=== PATIENT | female | born 1965 | race Caucasian/White ===

== ENCOUNTER 2016-10-09 20:02 | Emergency (ER) | payer MEDICARE, OTHER ==
[2016-10-09] MEDS ORDERED: ZIPRASIDONE HCL 20 MG CAPSULE PO ONE (22:56)
[2016-10-09] MEDS ORDERED: ZIPRASIDONE HCL 20 MG CAPSULE ONE (22:56)
[2016-10-09] MEDS ORDERED: LORazepam 1 MG TABLET PO ONE (22:56)
[2016-10-09] MEDS ORDERED: LORazepam 1 MG TABLET ONE (22:57)
--- NOTE | 2016-10-09 22:57 | ERNOTE ---
<Jordan Lomax - Last Filed: 10/10/16 08:03> Psychological HPI - General Chief Complaint: Psychiatric Problem Source: Reports: patient Exam Limitations: Reports: clinical condition - Immun/Allergies/Home Medications Allergies/Adverse Reactions: Allergies erythromycin base [Erythromycin Base] Adverse Reaction (Intermediate, Verified 10/10/16 17:35) Vomiting, DIARRHEA, DORADO Home Medications: HOME MEDICATIONS Simvastatin [Zocor] 40 mg PO HS 02/21/13 [Last Taken 10/18/13] Citalopram Hydrobromide [Citalopram HBr] 40 mg PO DAILY 06/30/14 [Last Taken Unknown] Multivitamin [Multi-Vitamin Daily] 1 each PO DAILY 10/25/14 [Last Taken Unknown] Omeprazole [Prilosec] 40 mg PO DAILY #30 cap 08/22/15 [Last Taken Unknown] [place] Carbonate ER 450 mg PO BID 04/05/16 [Last Taken Unknown] ALPRAZolam [Xanax] 0.25 mg PO BID #60 tablet 04/11/16 [Last Taken Unknown] ALPRAZolam [Xanax] 2 mg PO HS #30 tablet 04/11/16 [Last Taken Unknown] Acetaminophen [Tylenol] 650 mg PO QID PRN #0 tablet 04/11/16 [Last Taken Unknown ] Albuterol Sulfate [Proair Hfa] 2 puff IH Q4H PRN #1 inhaler 04/11/16 [Last Taken Unknown] Dextroamphetamine/Amphetamine [Adderall 20 Mg Tablet] 30 mg PO BID@0900,1200 [Last Taken Unknown] Diclofenac Potassium [Zipsor] 2 cap PO TID #180 capsule 04/11/16 [Last Taken Unknown] Gabapentin [Neurontin] 2 tab PO TID #180 tablet 04/11/16 [Last Taken Unknown] HYDROcodone/ACETAMINOPHEN [[place] 5-325 Tablet] 1 tab PO Q6H PRN #120 tablet [Last Taken Unknown] Multivitamins [Multivitamin Lee] 1 cap PO DAILY capsule 04/11/16 [Last Taken Unknown] Nicotine [Nicoderm] 21 mg TD Q24H #30 patch.td24 04/11/16 [Last Taken Unknown] Topiramate [Topamax] 2 tab PO BID #120 tablet 04/11/16 [Last Taken Unknown] risperiDONE [Risperdal] 1 mg PO HS #30 tab 04/11/16 [Last Taken Unknown] - History of Present Illness Narrative: pt brought in by EMS due to suicidal ideations. Pt states that 2 months ago she began tapering off her lithium and stopped taking it one month ago. Ten days ago she received her regular [place]vega sustena injection after that injection she believes she began to worsen. She began to have return of auditory hallucinations. At first the voices were distant and whispers but at times the voices are worse. Especially when her paranoia increases then the voices also increase. She states she has not showered in a week due to the voices but cannot explain why. she has been having relationship issues with her boyfriend. He continues to push the relationship but she feels like she is better alone. She states she spent 9 years alone and she did much better overall. She does not want to take her medications because of the SE especially lithium but also the Invega. She is afraid of what she may do to herself and does not feel safe at home but does not have a specific plan of suicide Time Seen by Provider: 10/09/16 20:25 Arrived by: Reports: ambulance, called by patient - but patient states she does not remember calling them Onset/duration: Reports: gradual onset Intent: Reports: wants to escape - from the voices Situational Problems: Reports: significant other Associated Symptoms: Reports: frustrated, paranoid, hallucinating, suicidal thoughts Review of Systems - Review of Systems Constitutional: Absent: recent illness, fever, chills EYE: Present: no symptoms reported ENT: Present: no symptoms reported Respiratory: Present: shortness of breath - due to smoking but not any different than usual Cardiology: Present: no symptoms reported Gastrointestinal/Abdominal: Present: eating less - due to SE of her medications Genitourinary: Present: no symptoms reported Musculoskeletal: Present: no symptoms reported Skin: Present: no symptoms reported Neurological: Present: dizziness/light-headedness, weakness Endocrine: Present: no symptoms reported Hematologic/Lymphatic: Present: no symptoms reported Psych: Present: See HPI - Patient's Past Medical History Patient History - Medical: Anxiety, Depression, GERD, Headache, UTI'S, Other Patient History - Cardiac/Respiratory: COPD, CVA/Stroke, Hypertension, Hyperlipidemia Patient History - Cancer: No Hx of Cancer Patient History - Surgical Procedures: Cholecystectomy, D & C, Tubal Ligation, Other Patient History - Other: None - Family History Mother Family History - Medical: History Unknown Father Family History - Medical: History Unknown Family History - Cardiac/Respiratory: Myocardial Infarction Brother Family History - Medical: Diabetes Type 2, Renal Failure, Other Sister Family History - Medical: Other - Social History Living Situations: home Psych History: Hx of Anxiety, Hx of Depression, Hx of Schizophrenia Alcohol Use: none Drug Use: none - Immunizations Immunizations Up to Date: Yes Hx Pneumococcal Vaccination: No History of Influenza Vaccine: No Physical Exam - Physical Exam General Appearance: Present: wd/wn, alert, anxious Eye Exam: Normal inspection: bilateral, PERRL: bilateral, EOMI: bilateral Ears, Nose, Throat: Present: normal ENT inspection Neck: Present: normal inspection, nontender Respiratory: Present: no respiratory distress, normal breath sounds, no accessory muscle use, chest nontender, lungs clear Cardiovascular/Chest: Present: regular rate, rhythm, no murmur Gastrointestinal/Abdominal: Present: normal bowel sounds, nontender, nondistended, soft Back Exam: Present: normal inspection, normal range of motion Extremity Exam: Present: normal inspection, normal range of motion Neurological Exam: Present: alert, oriented, other - thoughs are tangential but patient at times realizes that she isn't "thinking straight" Skin Exam: Present: normal color, warm/dry Lymphatic Exam: Present: no adenopathy ED Progress - Results and Orders Patient's Lab Results:: I have reviewed the patient's lab results. Results and Orders: Laboratory Tests 10/09/16 10/09/16 10/09/16 Unknown Unknown Unknown WBC 7.5 Hgb 14.1 Hct 41.0 Plt Count 186 Sodium 140 Potassium 4.0 Chloride 105 Carbon Dioxide 19.0 L Anion Gap 20.0 H BUN 10 D Creatinine 0.82 Est GFR (Non-Af Amer) 78 Random Glucose 93 Calcium 9.2 Total Bilirubin 0.1 AST 16 ALT 23 Alkaline Phosphatase 67 Total Protein 8.0 Albumin 3.8 Urine Color Urine Appearance Urine pH Ur Specific [place] Urine Protein Urine Glucose (UA) Urine Ketones Urine Blood Urine Nitrate Urine Bilirubin Urine Urobilinogen Ur Leukocyte Esterase Urine RBC Urine WBC Ur Epithelial Cells Urine Bacteria Urine Culture Comments Salicylates 6.5 Urine Opiates Screen Positive H Acetaminophen Less than 0.2 L Barbiturate Screen Negative Ur Phencyclidine Scrn Negative Urine Amphetamine Positive H U Benzodiazepines Scrn Negative Urine Cocaine Screen Negative Urine Marijuana (THC) Positive H Ethyl Alcohol 3.0 10/09/16 Unknown WBC Hgb Hct Plt Count Sodium Potassium Chloride Carbon Dioxide Anion Gap BUN Creatinine Est GFR (Non-Af Amer) Random Glucose Calcium Total Bilirubin AST ALT Alkaline Phosphatase Total Protein Albumin Urine Color Yellow Urine Appearance Clear Urine pH 6.0 Ur Specific [place] 1.025 Urine Protein Negative Urine Glucose (UA) Negative Urine Ketones Negative Urine Blood Negative Urine Nitrate Negative Urine Bilirubin Negative Urine Urobilinogen Normal Ur Leukocyte Esterase Negative Urine RBC 5-10 H Urine WBC None seen Ur Epithelial Cells 0-5 Urine Bacteria 3+ H Urine Culture Comments No culture indicated Salicylates Urine Opiates Screen Acetaminophen Barbiturate Screen Ur Phencyclidine Scrn Urine Amphetamine U Benzodiazepines Scrn Urine Cocaine Screen Urine Marijuana (THC) Ethyl Alcohol - Vital Signs Patient's Vital Signs:: I have reviewed the patient's vital signs. - Progress/Reassessment Chief Complaint: Psychiatric Problem Progress:: Improved - has been sleeping off and on Progress Note-Subjective: I had discussed the plan with the patient initially including blood draw and urinalysis, she agreed. When the maintenance fitter went into the room the patient began crying and refusing to allow a blood draw. She thought that we were going to give her an injection of medication and she didn't want any more medication. I explained to the patient that we were not giving her anything only taking blood, after some time the patient allowed blood to be taken. Pt began to get upset with the noise that was going on in the ER, as it was busy. She began yelling and coming out into the hallway. We discussed it with her and were able to get her to go back into her exam room. 10/09/16 22:54 22:45 pt tried to leave the facility. I convinced her to go back to her room. Pt agreed to take PO meds to help with her anxiety and paranoia. 23:05 Pt called me into the room, asking to talk with me. She admitted that she "tried methamphetamine" 3 weeks ago. Pt states she only used it that one time and that it made her very sick. 10/09/16 23:20 Pt again tried to leave and LE was called to keep the patient from eloping. Geodon and ativan were given PO, patient took them without incident 10/10/16 00:35 Pt asked for her night time medications, orders entered but have not gone through 10/10/16 00:42 Medication orders not showing on MAR. 10/10/16 04:59 Medication ordered separately: risperdal and gabapentin and was given. - Transfer of Care Physician Sign Out: Jordan Lomax Receiving Physician: Jacek More Expected Disposition: Transfer Departure Clinical Impression: Suicidal thoughts, Hallucinations Schizoaffective disorder Qualifiers: Schizoaffective disorder type: depressive Qualified Code(s): F25.1 - Schizoaffective disorder, depressive type - Departure Condition: Good <Jacek More - Last Filed: 10/10/16 20:08> ED Progress - Date and Time Seen: Date and Time: 10/10/16 14:17 Pt continues to be disruptive and violent. She is continuing to hallucinate and yells out at the staff. We are awaiting placement at a facility. - Transfer of Care Physician Sign Out: Jacek More Receiving Physician: Jordan Lomax
[2016-10-10 00:02] LABS: Hemoglobin 14.1 gm/dL (12.5-16.0); Mean Cell Volume 94.5 fl (78-100); Mean Corpuscular Hemoglobin 32.5 pg (27-31); Mean Corpuscular Hgb Conc 34.4 g/dl (32-36); Mean Platelet Volume 10.7 fl (6.0-9.5); Neutrophil # 4.8 K/mm3 (1.3-6.0); Neutrophil % 63.8 % (42-75.0); Platelet Count 186 K/mm3 (150-450); Red Blood Count 4.34 M/mm3 (4.2-5.4); Red Cell Distribution Width 12.2 % (11.5-14.0); White Blood Count 7.5 K/mm3 (4.0-10.5)
--- OUTSIDE RECORDS SUMMARY | 2016-10-10 00:03 | XMS REPORT | Continuity of Care Document ---
:1965 Author Organization [facility] ([facility]) Address [address] [place] [address] Phone [phone] Care Team Providers Name Role Phone Linwood Kent Primary Care Provider [phone] Source Comments This disclosure is being made pursuant to the Care Everywhere program, applicable federal and state laws, and may not contain all informaitonavailable regarding this patient.[facility] ([facility]) Active Allergies and Adverse Reactions Allergen Noted Date Severity Reactions Comments Erythromycin Diarrhea,Nausea & Vomiting,Stomach Pain Current Medications Not on file Active Problems Problem Noted Date Depressive disorder, not elsewhere classified 08/06/2008 Shortness of breath 05/22/2007 Tobacco use disorder 03/07/2007 Suicidal ideation 03/05/2007 Migraine without aura, with intractable migraine, so stated, without 2005 mention of status migrainosus Heterophoria, unspecified 05/15/2006 Headache(784.0) 05/15/2006 Breast screening, unspecified 03/19/2006 Unspecified hypothyroidism 07/02/2005 Major depressive disorder, recurrent episode, moderate 03/02/2005 Borderline personality disorder 03/02/2005 Unspecified nonpsychotic mental disorder 02/28/2005 Other and unspecified alcohol dependence, unspecified drinking behavior 2004 Dysuria 02/28/2005 Dyspepsia and other specified disorders of function of stomach 02/02/2005 Immunizations Name Dates Previously Given Next Due Hepatitis B, unspecified 05/15/2006,10/18/2000 Influenza, unspecified 05/21/2006 Tdap 03/19/2006 Social History Tobacco Use Types Packs/Day Years Used Date Never Assessed Last Filed Vital Signs Vital Sign Reading Time Taken Blood Pressure 118/65 08/10/2008 8:00 AM CAR RECORD CLERK Pulse 67 08/10/2008 8:00 AM CAR RECORD CLERK Temperature 36.6 C (97.88 F) 08/10/2008 8:00 AM CAR RECORD CLERK Respiratory Rate 18 08/10/2008 8:00 AM CAR RECORD CLERK Height 0.145 m (5.7") 08/04/2008 3:20 PM CAR RECORD CLERK Weight 103.797 kg (228 lb 13.3 oz) 08/10/2008 8:00 AM CAR RECORD CLERK Body Mass Index 4936.84 08/10/2008 8:00 AM CAR RECORD CLERK Oxygen Saturation - - Plan of Care Health Maintenance Due Date Last Done Comments MMR Vaccine 1984 Pneumococcal Vaccine (1 of 1 1985 - PPSV23) Hepatitis B Vaccine (3 of 3 07/10/2006 05/15/2006, - Primary Series) 10/18/2000 Cervical Cancer Screening 02/23/2007 02/24/2004 Mammogram 04/22/2007 04/22/2006 Lipid Disorder Screening 07/23/2011 07/23/2006, Additional history exists 06/25/2006, 05/21/2006 Influenza Vaccine: Seasonal 02/13/2016 05/21/2006 (#1) Td Vaccine 03/19/2016 03/19/2006 Colonoscopy 04/13/2016 05/16/2005 Tdap Vaccine Completed 03/19/2006 Results from Last 3 Months Not on file
[2016-10-10 00:09] LABS: Urine Bilirubin Negative (NEGATIVE); Urine Blood Negative /ul (NEGATIVE); Urine Ketone Negative (NEGATIVE); Urine Nitrite Negative (NEGATIVE); Urine Protein Negative (NEGATIVE); Urine Specific Gravity 1.025 SP.GR. (1.005-1.010); Urine Urobilinogen Normal (NORMAL)
[2016-10-10 00:10] LABS: Urine Appearance Clear; Urine Bacteria 3+; Urine Color Yellow; Urine WBC None Seen /hpf (0-5)
[2016-10-10 00:19] LABS: Cocaine Ur Negative (NEGATIVE); Urine Barbiturate Negative (NEGATIVE); Urine Benzodiazepines Negative (NEGATIVE); Urine PCP Negative (NEGATIVE)
[2016-10-10 00:21] LABS: Urine Opiates Positive (NEGATIVE); Urine THC Positive (NEGATIVE)
[2016-10-10 00:32] LABS: ALT 23 U/L (19-67); AST 16 U/L (0-48); Albumin * 3.8 gm/dl (3.4-5.0); Alkaline Phosphatase * 67 U/L (50-170); BUN/Creatinine Ratio 12.2 (9.0-21.6); Bilirubin, Total 0.1 mg/dL (0.0-1.1); Blood Urea Nitrogen 10 mg/dL (3-23); Calcium * 9.2 mg/dL (7.9-10.9); Chloride 105 mmol/L (97-106); Glucose * 93 mg/dL (70-110); Salicylate 6.5 mg/dL (2.8-20.0); Sodium 140 mmol/L (132-142)
[2016-10-10] MEDS ORDERED: GABAPENTIN 100 MG CAPSULE PO ONE (03:39)
[2016-10-10] MEDS ORDERED: risperiDONE 1 MG TABLET PO ONE (04:00)
[2016-10-10] MEDS: GABAPENTIN 600 MG TABLET PO SCH ×2 (14:20→21:52)
[2016-10-10] MEDS: ALPRAZolam 0.25 MG TABLET PO SCH ×2 (14:22→21:53)
[2016-10-10] MEDS ORDERED: ALPRAZolam 0.25 MG TABLET ONE (14:22)
[2016-10-10] MEDS ORDERED: CITALOPRAM HYDROBROMIDE 20 MG TABLET PO SCH (15:00)
[2016-10-10] MEDS ORDERED: LITHIUM CARBONATE 150 MG CAPSULE PO SCH (15:00)
[2016-10-10] MEDS ORDERED: PANTOPRAZOLE SODIUM 40 MG TABLET.EC PO SCH (15:00)
[2016-10-10] MEDS ORDERED: MULTIVITAMINS 1 CAP CAPSULE PO SCH (15:00)
[2016-10-10 20:41] VITALS: BP 126/81
[2016-10-10] MEDS ORDERED: TOPIRAMATE 50 MG TABLET PO SCH (21:00)
[2016-10-10] MEDS ORDERED: ALPRAZolam 0.25 MG TABLET PO SCH (21:00)
[2016-10-10] MEDS ORDERED: SIMVASTATIN 40 MG TABLET PO SCH (21:00)
[2016-10-10] MEDS ORDERED: risperiDONE 1 MG TABLET PO SCH (21:00)
[2016-10-10] MEDS ORDERED: ALPRAZolam 1 MG TABLET ONE (21:38)
== END 2016-10-11 02:20 | disposition short-term general hospital (02) ==
LOC: ER 20:02
DX: R45.851 Suicidal ideations (principal); F25.1 Schizoaffective disorder, depressive type; E78.5 Hyperlipidemia, unspecified; K21.9 Gastro-esophageal reflux disease without esophagitis; F41.8 Other specified anxiety disorders
CPT/HCPCS: 36415; 80053; 80178; 80307; 81001; 84443; 84703; 85025; 93005; 99285; G0480; G0481

== ENCOUNTER 2017-06-10 17:08 | Emergency (ER) | payer MEDICARE, OTHER ==
[2017-06-10 17:26] VITALS: BP 154/96
[2017-06-10] MEDS ORDERED: HYDROcodone/ACETAMINOPHEN 1 EACH TABLET PO ONE (18:55)
--- NOTE | 2017-06-10 18:57 | ERNOTE ---
Medical Problem HPI - Narrative Date of Service: 06/10/17 - General Chief Complaint: Lower Extremity Pain/ Injury Time Seen by Provider: 06/10/17 18:38 Source: patient, RN notes reviewed, old records Exam Limitations: other - behavioral issues - Immun/Allergies/Home Medications Immunizations: IMMUNIZATION HX Immunizations Up to Date Yes History of Influenza Vaccine Yes Hx Pneumococcal Vaccination Yes Allergies/Adverse Reactions: Allergies erythromycin base [Erythromycin Base] Adverse Reaction (Intermediate, Verified 06/10/17 17:26) Vomiting, DIARRHEA, DORADO Home Medications: HOME MEDICATIONS Simvastatin [Zocor] 40 mg PO HS 02/21/13 [Last Taken 10/18/13] Citalopram Hydrobromide [Citalopram HBr] 40 mg PO DAILY 06/30/14 [Last Taken Unknown] Multivitamin [Multi-Vitamin Daily] 1 each PO DAILY 10/25/14 [Last Taken Unknown] Omeprazole [Prilosec] 40 mg PO DAILY #30 cap 08/22/15 [Last Taken Unknown] [place] Carbonate ER 450 mg PO BID 04/05/16 [Last Taken Unknown] ALPRAZolam [Xanax] 0.25 mg PO BID #60 tablet 04/11/16 [Last Taken Unknown] ALPRAZolam [Xanax] 2 mg PO HS #30 tablet 04/11/16 [Last Taken Unknown] Acetaminophen [Tylenol] 650 mg PO QID PRN #0 tablet 04/11/16 [Last Taken Unknown ] Albuterol Sulfate [Proair Hfa] 2 puff IH Q4H PRN #1 inhaler 04/11/16 [Last Taken Unknown] Dextroamphetamine/Amphetamine [Adderall 20 Mg Tablet] 30 mg PO BID@0900,1200 [Last Taken Unknown] Diclofenac Potassium [Zipsor] 2 cap PO TID #180 capsule 04/11/16 [Last Taken Unknown] Gabapentin [Neurontin] 2 tab PO TID #180 tablet 04/11/16 [Last Taken Unknown] HYDROcodone/ACETAMINOPHEN [[place] 5-325 Tablet] 1 tab PO Q6H PRN #120 tablet [Last Taken Unknown] Multivitamins [Multivitamin Lee] 1 cap PO DAILY capsule 04/11/16 [Last Taken Unknown] Nicotine [Nicoderm] 21 mg TD Q24H #30 patch.td24 04/11/16 [Last Taken Unknown] Topiramate [Topamax] 2 tab PO BID #120 tablet 04/11/16 [Last Taken Unknown] risperiDONE [Risperdal] 1 mg PO HS #30 tab 04/11/16 [Last Taken Unknown] - History of Present History Narrative: 52 year old female brought to the ED in a wheelchair after presenting to the walk in clinic for multiple complaints. She is reporting pain in multiple areas , rectal bleeding, a broken tooth, being unable to walk and not having anyone to help take care of her. She was recently dismissed from her PCP, Dr. Natalie Kwon, for being abusive to his staff over the phone. She reports being out of pain medication. Review of Systems - Review of Systems Constitutional: Present: fatigue, malaise EYE: Present: no symptoms reported ENT: Present: ear pain, other - dental pain Respiratory: Present: cough Cardiology: Present: no symptoms reported Gastrointestinal/Abdominal: Present: See HPI Genitourinary: Present: no symptoms reported Musculoskeletal: Present: muscle pain, joint pain Skin: Present: no symptoms reported Neurological: Present: numbness, tingling Endocrine: Present: no symptoms reported Hematologic/Lymphatic: Present: no symptoms reported Psych: Present: depressed, emotional problems - Patient's Past Medical History Patient History - Medical: Anxiety, Depression, GERD, Headache, UTI'S, Other Patient History - Cardiac/Respiratory: COPD, CVA/Stroke, Hypertension, Hyperlipidemia Patient History - Cancer: No Hx of Cancer Patient History - Surgical Procedures: Cholecystectomy, D & C, Tubal Ligation, Other Patient History - Other: None LMP (females 10-50): Menopausal - Family History Mother Family History - Medical: History Unknown Father Family History - Medical: History Unknown Family History - Cardiac/Respiratory: Myocardial Infarction Brother Family History - Medical: Diabetes Type 2, Renal Failure, Other Sister Family History - Medical: Other - Social History Living Situations: home Psych History: Hx of Anxiety, Hx of Depression, Hx of Schizophrenia Smoking Status: Never smoker Alcohol Use: none Drug Use: none - Immunizations Immunizations Up to Date: Yes Hx Pneumococcal Vaccination: Yes History of Influenza Vaccine: Yes Physical Exam - Physical Exam Narrative: Patient ambulated from the waiting room to the exam room without difficulty General Appearance: Present: wd/wn, alert, no apparent distress Ears, Nose, Throat: Present: normal pharynx, other - poor dentition with several decaying teeth, no gingival inflammation or signs of abscess. Absent: abnormal TM (R), abnormal TM (L), dry mucous membranes Neck: Present: normal inspection, nontender, supple Respiratory: Present: no respiratory distress, normal breath sounds, no accessory muscle use, lungs clear Cardiovascular/Chest: Present: regular rate, rhythm, no murmur, normal peripheral pulses Extremity Exam: Present: normal inspection, normal range of motion Neurological Exam: Present: alert, oriented, no motor/sensory deficits. Absent : normal mood/affect Skin Exam: Present: normal color, warm/dry ED Progress - Vital Signs Patient's Vital Signs:: I have reviewed the patient's vital signs. Vital Signs: Vital Signs 06/10/17 17:17 Temperature 36.1 C L Pulse Rate 68 Respiratory 16 Rate Blood Pressure 154/96 O2 Sat by Pulse 99 Oximetry - Progress/Reassessment Chief Complaint: Lower Extremity Pain/ Injury Progress:: Unchanged Plan - Plan Plan: The patient has numerous complaints, all of which have been going on for quite some time. Her main concern seems to be that she no longer has a PCP and is out of pain medication. Discussed that her chronic pain and numerous other longstanding issues cannot be addressed in the ED. The patient is argumentative and gives numerous excuses for her problems. She claims to not have been notified about why she was dismissed from her PCP, but then mentions that she was not hostile with the clinic staff on the phone, she was just trying to stand up for herself. Became argumentative with nurse on discharge and accused him of making her wet her pants by not taking her to the bathroom. She was shown to the bathroom where she stood outside the door and continued to argue. She finally then used the restroom and left the department, ambulating without difficulty. Departure Clinical Impression: Personality disorder, unspecified Chronic pain Qualifiers: Chronic pain type: chronic pain syndrome Qualified Code(s): G89.4 - Chronic pain syndrome - Departure Disposition: Home Follow Up Needed Condition: Stable Instructions: Chronic Pain Additional Instructions: Establish with a primary care provider for further evaluation and treatment
[2017-06-10] MEDS ORDERED: HYDROcodone/ACETAMINOPHEN 1 EACH TABLET ONE (18:58)
== END 2017-06-10 19:10 | disposition home or self-care (01) ==
LOC: ER 17:08
DX: F60.9 Personality disorder, unspecified (principal); G89.29 Other chronic pain

== ENCOUNTER 2017-07-24 14:44 | Emergency (ER) | payer MEDICARE, MEDICAID ==
[2017-07-24 15:15] LABS: Hematocrit 44.1 % (37.0-47.0); Hemoglobin 15.5 gm/dL (12.5-16.0); Mean Cell Volume 89.5 fl (78-100); Mean Corpuscular Hemoglobin 31.4 pg (27-31); Mean Corpuscular Hgb Conc 35.1 g/dl (32-36); Mean Platelet Volume 9.9 fl (6.0-9.5); Neutrophil # 4.8 K/mm3 (1.3-6.0); Neutrophil % 72.8 % (42-75.0); Platelet Count 224 K/mm3 (150-450); Red Blood Count 4.93 M/mm3 (4.2-5.4); Red Cell Distribution Width 12.3 % (11.5-14.0); White Blood Count 6.6 K/mm3 (4.0-10.5)
[2017-07-24 15:29] LABS: Albumin * 3.9 gm/dl (3.4-5.0); BUN/Creatinine Ratio 10.8 (9.0-21.6); Bilirubin, Total 0.3 mg/dL (0.0-1.1); Calcium * 9.2 mg/dL (7.9-10.9); Carbon Dioxide 25.3 mmol/L (24-32.6); Potassium 4.3 mmol/L (3.4-4.6); Total Protein 8.1 gm/dL (6.2-8.2)
[2017-07-24 15:46] LABS: Urine Appearance Clear; Urine Bacteria TRACE; Urine Bilirubin Negative (NEGATIVE); Urine Blood Negative /ul (NEGATIVE); Urine Color Yellow; Urine Ketone 5 mg/dL (NEGATIVE); Urine Nitrite Negative (NEGATIVE); Urine Protein Negative (NEGATIVE); Urine RBC None Seen /hpf (0-5); Urine Specific Gravity 1.015 SP.GR. (1.005-1.010); Urine Urobilinogen Normal (NORMAL)
--- NOTE | 2017-07-24 15:50 | ERNOTE ---
Abdominal HPI - General Chief Complaint: Abdominal Pain Time Seen by Provider: 07/24/17 15:33 Source: patient Exam Limitations: no limitations - Immun/Allergies/Home Medications Immunizatons: IMMUNIZATION HX Immunizations Up to Date Yes History of Influenza Vaccine No Hx Pneumococcal Vaccination No Allergies/Adverse Reactions: Allergies erythromycin base [Erythromycin Base] Adverse Reaction (Intermediate, Verified 07/24/17 14:57) Vomiting, DIARRHEA, DORADO Home Medications: HOME MEDICATIONS Simvastatin [Zocor] 40 mg PO HS 02/21/13 [Last Taken 10/18/13] Citalopram Hydrobromide [Citalopram HBr] 40 mg PO DAILY 06/30/14 [Last Taken Unknown] Multivitamin [Multi-Vitamin Daily] 1 each PO DAILY 10/25/14 [Last Taken Unknown] Omeprazole [Prilosec] 40 mg PO DAILY #30 cap 08/22/15 [Last Taken Unknown] [place] Carbonate ER 450 mg PO BID 04/05/16 [Last Taken Unknown] ALPRAZolam [Xanax] 0.25 mg PO BID #60 tablet 04/11/16 [Last Taken Unknown] ALPRAZolam [Xanax] 2 mg PO HS #30 tablet 04/11/16 [Last Taken Unknown] Acetaminophen [Tylenol] 650 mg PO QID PRN #0 tablet 04/11/16 [Last Taken Unknown ] Albuterol Sulfate [Proair Hfa] 2 puff IH Q4H PRN #1 inhaler 04/11/16 [Last Taken Unknown] Dextroamphetamine/Amphetamine [Adderall 20 Mg Tablet] 30 mg PO BID@0900,1200 [Last Taken Unknown] Diclofenac Potassium [Zipsor] 2 cap PO TID #180 capsule 04/11/16 [Last Taken Unknown] Gabapentin [Neurontin] 2 tab PO TID #180 tablet 04/11/16 [Last Taken Unknown] HYDROcodone/ACETAMINOPHEN [[place] 5-325 Tablet] 1 tab PO Q6H PRN #120 tablet [Last Taken Unknown] Multivitamins [Multivitamin Lee] 1 cap PO DAILY capsule 04/11/16 [Last Taken Unknown] Nicotine [Nicoderm] 21 mg TD Q24H #30 patch.td24 04/11/16 [Last Taken Unknown] Topiramate [Topamax] 2 tab PO BID #120 tablet 04/11/16 [Last Taken Unknown] risperiDONE [Risperdal] 1 mg PO HS #30 tab 04/11/16 [Last Taken Unknown] Sulfamethoxazole/Trimethoprim [Bactrim Ds] 1 tab PO BID #20 tab 07/24/17 [Last Taken Unknown] - History of Present Illness Narrative: Patient is here for lower abdominal pain she has had since this morning. She has increased urinary frequency and has a history of UTIs most recently in 2016. She has had lower back pain for a while, had been taking care of her 300+lbs boyfriend who now is in the [facility] Timing: constant Quality: moderate, sharpness Activities at Onset: none Associated Symptoms: Absent: headache, fever/chills, heartburn, nausea Prior Treatment: Present: recently seen. Absent: currently on antibiotics Review of Systems - Review of Systems Constitutional: Present: chills. Absent: recent illness, fever EYE: Absent: double vision ENT: Absent: nose congestion, sore throat Respiratory: Absent: shortness of breath, cough Cardiology: Absent: chest pain Gastrointestinal/Abdominal: Present: See HPI, abdominal pain. Absent: nausea, vomiting, diarrhea Genitourinary: Present: See HPI, frequency Musculoskeletal: Absent: back pain Skin: Present: other - just discovered lesion on left ear while in ER, no pain Neurological: Absent: headache Psych: Present: emotional problems - Patient's Past Medical History Patient History - Medical: Anxiety, Depression, GERD, Headache, UTI'S, Other Patient History - Cardiac/Respiratory: COPD, Hypertension, Hyperlipidemia, TIA Patient History - Cancer: Skin Patient History - Surgical Procedures: Cholecystectomy, D & C, Tubal Ligation, Orthopedic Patient History - Other: None LMP (females 10-50): Menopausal - Family History Mother Family History - Medical: History Unknown Father Family History - Medical: History Unknown Family History - Cardiac/Respiratory: Myocardial Infarction Brother Family History - Medical: Diabetes Type 2, Renal Failure, Other Sister Family History - Medical: Other - Social History Living Situations: alone Psych History: Hx of Anxiety, Hx of Depression, Hx of Schizophrenia Smoking Status: Current every day smoker Alcohol Use: none Drug Use: none - Immunizations Immunizations Up to Date: Yes Hx Pneumococcal Vaccination: No History of Influenza Vaccine: No Physical Exam - Physical Exam General Appearance: Present: wd/wn, alert, no apparent distress Head Exam: Present: normal inspection Eye Exam: Normal inspection: bilateral Ears, Nose, Throat: Present: normal except -, abnormal TM (L) - dull, no erythema, normal pharynx, other - on left ear: on auricle dark pigmented lesion. Absent: nasal congestion Respiratory: Present: no respiratory distress, normal breath sounds, no accessory muscle use, lungs clear Cardiovascular/Chest: Present: regular rate, rhythm, no murmur Gastrointestinal/Abdominal: Present: normal bowel sounds, nondistended, soft, tenderness - mildly lower abdomen Back Exam: Present: no CVA tenderness Extremity Exam: Present: no edema Neurological Exam: Present: alert, oriented Skin Exam: Present: normal color, warm/dry ED Progress - Results and Orders Patient's Lab Results:: I have reviewed the patient's lab results. - Vital Signs Patient's Vital Signs:: I have reviewed the patient's vital signs. Vital Signs: Vital Signs 07/24/17 07/24/17 14:53 15:15 Temperature 36.8 C Pulse Rate 83 78 Respiratory 17 Rate Blood Pressure 156/92 147/89 O2 Sat by Pulse 96 95 Oximetry - Progress/Reassessment Chief Complaint: Abdominal Pain Progress Note-Subjective: 07/24/17 15:54 discussed test results with patient and family last culture grew ESBL sensitive to bactrim Departure Clinical Impression: Skin lesion of left ear UTI (urinary tract infection) Qualifiers: Urinary tract infection type: acute cystitis Hematuria presence: without hematuria Qualified Code(s): N30.00 - Acute cystitis without hematuria - Departure Disposition: Home self-care Condition: Good Instructions: Urinary Tract Infection, Adult, [id number] Additional Instructions: follow up with your doctor at [facility] as scheduled call the business management intern for the lesion on your left ear Referrals: Aris Harper MD [Staff Physician] - Prescriptions: Sulfamethoxazole/Trimethoprim [Bactrim Ds] 1 tab PO BID #20 tab
[2017-07-24 15:51] LABS: Cocaine Ur Negative (NEGATIVE); Urine Barbiturate Negative (NEGATIVE); Urine Opiates Negative (NEGATIVE); Urine PCP Negative (NEGATIVE)
[2017-07-24 15:52] LABS: Urine Benzodiazepines Positive (NEGATIVE); Urine THC Positive (NEGATIVE)
[2017-07-24 17:02] VITALS: BP 142/77
== END 2017-07-24 16:02 | disposition home or self-care (01) ==
LOC: ER 14:44
DX: Z87.440 Personal history of urinary (tract) infections; F17.200 Nicotine dependence, unspecified, uncomplicated; N30.00 Acute cystitis without hematuria; Z86.73 Personal history of transient ischemic attack (TIA), and cerebral infarction without residual deficits; L98.9 Disorder of the skin and subcutaneous tissue, unspecified; Z85.828 Personal history of other malignant neoplasm of skin